=== PATIENT | female | born 1945 | race African-American/Black ===

== ENCOUNTER 2020-01-19 00:25 | Emergency (ER) | payer MEDICARE, OTHER ==
[~2020-01-19] VITALS: Ht 160 cm; Wt 65.8 kg
--- NOTE | 2020-01-19 00:52 | NUR ---
ED Nurse Note: Pt ambulated to ED from home c/o an irritated boil/cyst on her upper R back. Pt reports shes had it for years and it never was painful but after a large dog jumped on her back and scratched it. the boil is about 2 inches in diameter with small open holes
[2020-01-19 00:56] VITALS: BP 190/81
[2020-01-19] MEDS ORDERED: CLINDAMYCIN HC300 MG ORAL (01:30)
[2020-01-19] MEDS ORDERED: Clindamycin 150mg cap ORAL ONE (01:30)
--- NOTE | 2020-01-19 01:31 | Emergency Room Report ---
History of Present Illness General Chief Complaint: Skin Rash/Abscess Source: Patient Present Illness [facility] This a 74-year-old female with history hypertension. She presents with chief complaint of an abscess to her back. She said is been there for 15 to 20 years. Last week her dog jumped on her back and since then get more swollen. No drainage. Localized to the right back over the scapular area. Worse with movement. Worse with palpation. Better with rest. No other injury. Pain is 7 out of 10. Has not take anything for this. She said that her primary care doctor I&D it 20 years ago and it was very smelly. Allergies: Coded Allergies: No Known Allergies (Unverified , 01/19/20) COVID-19 Screening Contact w/high risk pt: No Experienced COVID-19 symptoms?: No COVID-19 Testing performed GREEN BUILDING ENGINEER: No Patient History Past Medical History: see triage record, old chart reviewed, HTN Past Surgical History: none Pertinent Family History: none Social History: Denies: smoking Nursing Documentation-[facility] Hx Hypertension: Yes Hx Cancer: Yes - breast ca Review of Systems Eye: Denies: eye pain, blurred vision ENT: Denies: ear pain, nose congestion, throat swelling Respiratory: Denies: cough, shortness of breath Cardiovascular: Denies: chest pain, palpitations Gastrointestinal: Denies: abdominal pain, diarrhea, nausea, vomiting Musculoskeletal: Denies: back pain, joint pain Skin: Denies: rash Neurological: Denies: headache, numbness Endocrine: Denies: increased thirst, increased urine Hematologic/Lymphatic: Denies: easy bruising All Other Systems: negative except mentioned in HPI Physical Exam Vital Signs Date Time Temp Pulse Resp B/P (MAP) Pulse Ox O2 Delivery O2 Flow Rate FiO2 01/19/20 00:25 98.4 74 20 190/81 (117) 99 Room Air Vitals with high blood pressure Sp02 EP Interpretation: reviewed, normal General Appearance: well appearing, no apparent distress, alert Head: normocephalic, atraumatic Eyes: bilateral eye PERRL, bilateral eye EOMI ENT: hearing grossly normal, normal pharynx Neck: full range of motion, supple, no meningismus Respiratory: chest non-tender, lungs clear, normal breath sounds Cardiovascular #1: regular rate, rhythm, no murmur Gastrointestinal: normal bowel sounds, non tender, no mass, no organomegaly, no bruit, non-distended Musculoskeletal: back normal, normal range of motion, gait/station normal, other - There is a 4 to 5 cm mass over the right scapular area. There is some pinpoint whitish discharge. Tender to palpation. Psychiatric: mood/affect normal Procedures Incision and Drainage Incision and Drainage : Consent: Verbal Site: Right scapula Blade Size: 11 I & D Procedure: betadine prep, sterile drapes applied Wound Location: back Wound Explored: clean Anesthesia: 1% Lidocaine Volume Anesthetic (ccs): 10 Patient Tolerated: Well Complications: None Progress Area cleaned with Betadine. Local anesthetic with 1% lidocaine. I made a 3 cm elliptical incision. Initially there was small to moderate amount of pus expressed. Then I expressed a large amount of sebaceous material. I cored the cyst out. It was irrigated and cleaned. Afterward I placed to loosely interrupted 2-0 Ethilon sutures. Patient taught a procedure without any problem. Medical Decision Making Diagnostic Impression: Primary Impression: Infected sebaceous cyst ER Course This patient presents with an infected sebaceous cyst. No deep infection. No necrotizing fasciitis. Last Vital Signs Date Time Temp Pulse Resp B/P (MAP) Pulse Ox O2 Delivery O2 Flow Rate FiO2 01/19/20 00:56 98.4 72 20 190/81 99 Room Air Status: improved Disposition: HOME, SELF-CARE Condition: Stable Scripts Clindamycin Hcl (CLINDAMYCIN HCL) 300 Mg Capsule 300 MG ORAL THREE TIMES A DAY, #21 CAP Prov: Michi Castillo MD 01/19/20 Referrals: NON PHYSICIAN (PCP) Additional Instructions: Your doctor or come back here in 2 days for recheck. Keep wound clean. Clean with hydroperoxide and apply antibiotic ointment and dressing. Return if symptoms worsen. Michi Castillo MD Jan 19, 2020 01:31
[2020-01-19 01:35] VITALS: BP 154/78
--- NOTE | 2020-01-19 01:35 | NUR ---
ER DISCHARGE NOTE: Patient is cleared to be discharged per ERMD, pt is aox4, on room air, with stable vital signs. pt was given dc and prescription instructions, pt was able to verbalize understanding, pt id band removed. pt is able to ambulate with steady gait. pt took all belongings. Pt tolerated I&D without complications, 2 stitches placed, instructed to come back in 7 days for removal
== END 2020-01-19 01:35 | disposition home or self-care (01) ==
LOC: EMR 00:57
DX: L72.3 Sebaceous cyst (principal); L08.9 Local infection of the skin and subcutaneous tissue, unspecified; I10 Essential (primary) hypertension; Z85.3 Personal history of malignant neoplasm of breast
CPT/HCPCS: 99283

== ENCOUNTER 2020-01-21 20:29 | Emergency (ER) | payer MEDICARE ==
[~2020-01-21] VITALS: Ht 160 cm; Wt 63.5 kg
[~2020-01-21 20:29] MED LIST: CLINDAMYCIN HC300 MG ORAL
[2020-01-21 20:42] VITALS: BP 156/73
--- NOTE | 2020-01-21 20:46 | Emergency Room Report ---
History of Present Illness General Chief Complaint: Wound Recheck/Suture Removal Source: Patient Present Illness HPI Disclaimer: Please note that this report is being documented using [employer] technology. This can lead to erroneous entry secondary to incorrect interpretation by the dictating instrument. HPI: 74-year-old female presents for wound reevaluation. 2 days ago she was in the emergency department and had a sebaceous cyst removed over the right shoulder. She presents for wound reevaluation and requesting suture removal. She has been compliant with her clindamycin. Denies wound breakdown, bleeding, purulent drainage. Denies fever, chills or other symptoms. 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 EOMI. Resp: Normal work of breathing Skin: Intact. The area that was incised and drained 2 days ago is clean dry and intact. I see 2 intact sutures. No dehiscence. There is surrounding edema and mild erythema still. Minimal warmth. No fluctuance. MSK: Normal tone and bulk. Moving all extremities. No obvious deformity. Neuro: Awake and alert. Mentating appropriately Medical Decision Making Diagnostic Impression: Primary Impression: Encounter for wound re-check ER Course 74-year-old female presents for wound check after removal sebaceous cyst 2 days ago. Wound appears to be still healing without sandip signs of spreading infection. She is compliant with her clindamycin and will continue taking it. Wound does not appear healed yet is not time for suture removal. She is to return in 4 days for reevaluation and suture removal. Discussed reasons to return sooner. She understands and agrees with this treatment plan. Last Vital Signs Date Time Temp Pulse Resp B/P (MAP) Pulse Ox O2 Delivery O2 Flow Rate FiO2 01/21/20 20:32 98.4 73 20 162/79 (106) 96 Room Air Disposition: HOME, SELF-CARE Condition: Stable Patient Instructions: Wound Check Additional Instructions: Return in 4 days for suture removal and reevaluation of the wound. Monitor for bleeding, wound breakdown, skin opening, pus drainage. Continue taking the antibiotics and finish the entire course of antibiotics that was prescribed to you. Return with new or worsening symptoms. Jose Alejandro Hamilton MD Jan 21, 2020 20:46
[2020-01-21 20:49] VITALS: BP 149/73
== END 2020-01-21 20:49 | disposition home or self-care (01) ==
LOC: EMR 20:35
DX: L72.3 Sebaceous cyst (principal); I10 Essential (primary) hypertension; Z85.3 Personal history of malignant neoplasm of breast
CPT/HCPCS: 99281

== ENCOUNTER 2020-01-25 23:38 | Emergency (ER) | payer MEDICARE ==
[~2020-01-25] VITALS: Ht 160 cm; Wt 63.5 kg
--- NOTE | 2020-01-26 | NUR ---
ED Nurse Note: Patient walked into ED for suture removal. Patient has sutures placed to R upper back/shoulder area. She notes she was here one week ago when sutures were placed and now they are bothering her therefore requesting them to be removed. She is AAOX4, breathing normal, NAD noted.
[2020-01-26 00:01] VITALS: BP 170/70
--- NOTE | 2020-01-26 00:10 | NUR ---
ER DISCHARGE NOTE: Patient is cleared to be discharged per ERMD, pt is aox4, on room air, with stable vital signs. pt was given dc instructions, pt was able to verbalize understanding, pt id band removed. pt is able to ambulate with steady gait. pt took all belongings.
[2020-01-26 00:15] VITALS: BP 155/69
--- NOTE | 2020-01-26 00:15 | Emergency Room Report ---
History of Present Illness General Chief Complaint: Wound Recheck/Suture Removal Source: Patient Present Illness HPI Is a 74-year-old female whom I saw last week for infected sebaceous cyst on her right shoulder. After removing the cyst I did place to sutures loosely. She says doing well. Little bit of blood but otherwise no fever or chills. No pus. She came in for wound check and suture removal. 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: No Patient History Past Medical History: see triage record, old chart reviewed Past Surgical History: other Pertinent Family History: none Social History: Denies: smoking Now: No Immunizations: other Reviewed Nursing Documentation: PMH: Agreed; PSxH: Agreed Nursing Documentation-PMH Hx Hypertension: Yes Hx Cancer: Yes - breast ca Review of Systems Eye: Denies: eye pain, blurred vision ENT: Denies: ear pain, nose congestion, throat swelling Respiratory: Denies: cough, shortness of breath Cardiovascular: Denies: chest pain, palpitations Gastrointestinal: Denies: abdominal pain, diarrhea, nausea, vomiting Musculoskeletal: Denies: back pain, joint pain Skin: Denies: rash Neurological: Denies: headache, numbness Endocrine: Denies: increased thirst, increased urine Hematologic/Lymphatic: Denies: easy bruising All Other Systems: negative except mentioned in HPI Physical Exam Vital Signs Date Time Temp Pulse Resp B/P (MAP) Pulse Ox O2 Delivery O2 Flow Rate FiO2 01/25/20 23:50 98.2 62 16 170/70 (103) 97 Room Air Vitals with high blood pressure Sp02 EP Interpretation: reviewed, normal General Appearance: well appearing, no apparent distress, alert Head: normocephalic, atraumatic Eyes: bilateral eye PERRL, bilateral eye EOMI ENT: hearing grossly normal, normal pharynx Neck: full range of motion, supple, no meningismus Respiratory: chest non-tender, lungs clear, normal breath sounds Cardiovascular #1: regular rate, rhythm, no murmur Gastrointestinal: normal bowel sounds, non tender, no mass, no organomegaly, no bruit, non-distended Musculoskeletal: back normal, normal range of motion, gait/station normal, other - Shoulder area over the superior scapular area on the right side: Wound looks fine. There are small pinpoint dehiscence with scant blood from it. No redness. Psychiatric: mood/affect normal Procedures Additional Procedure Procedure Narrative Procedure: Suture removal Indication: Sebaceous cyst removal Description: I remove both sutures. Wound looks clean. Patient tolerated procedure without any problem. Medical Decision Making Diagnostic Impression: Primary Impression: Encounter for wound re-check Additional Impression: Encounter for removal of sutures ER Course Here for wound check and suture removal. No evidence of any infection. Will discharge home. Last Vital Signs Date Time Temp Pulse Resp B/P (MAP) Pulse Ox O2 Delivery O2 Flow Rate FiO2 01/26/20 00:01 98.2 62 16 170/70 97 Room Air Status: improved Disposition: HOME, SELF-CARE Condition: Stable Patient Instructions: Wound Check Additional Instructions: Follow-up with your doctor in 7 days as needed. Return for any infection or fever. Michi Castillo MD Jan 26, 2020 00:15
== END 2020-01-26 00:15 | disposition home or self-care (01) ==
LOC: EMR 23:55
DX: Z48.02 Encounter for removal of sutures (principal); I10 Essential (primary) hypertension; Z85.3 Personal history of malignant neoplasm of breast; T81.30XA Disruption of wound, unspecified, initial encounter; X58.XXXA Exposure to other specified factors, initial encounter; Y92.9 Unspecified place or not applicable
CPT/HCPCS: 99281